=== PATIENT | female | born 1960 | race Caucasian/White ===

== ENCOUNTER 2020-06-08 15:09 | Emergency (ER) | payer OTHER ==
[~2020-06-08] VITALS: Ht 162.6 cm; Wt 50.8 kg
[2020-06-08 15:39] VITALS: Ht 162.6 cm; Wt 50.8 kg
[2020-06-08 17:09] VITALS: BP 95/65
== END 2020-06-08 17:09 | disposition home or self-care (01) ==
LOC: ED 15:09
DX: S93.402A Sprain of unspecified ligament of left ankle, initial encounter (principal); X50.1XXA Overexertion from prolonged static or awkward postures, initial encounter; Y93.89 Activity, other specified; Y92.89 Other specified places as the place of occurrence of the external cause; Y99.8 Other external cause status